=== PATIENT | female | born 1995 | race Caucasian/White ===

== ENCOUNTER 2019-08-19 20:17 | Emergency (ER) | payer OTHER ==
[~2019-08-19] VITALS: Ht 162.6 cm; Wt 68.0 kg
[2019-08-19] MEDS ORDERED: ZYRTEC10 M5 PO (20:30)
[2019-08-19] MEDS ORDERED: SUPER THERAVIT1 EACH PO (20:30)
[2019-08-19 20:47] LABS: URINE BILIRUBIN NEGATIVE (Negative); URINE BLOOD NEGATIVE (Negative); URINE CLARITY CLEAR; URINE COLOR STRAW; URINE GLUCOSE-RANDOM NEGATIVE (Negative); URINE KETONES NEGATIVE (Negative); URINE LEUKOCYTES NEGATIVE (Negative); URINE NITRITE NEGATIVE (Negative); URINE PROTEIN NEGATIVE (Negative); URINE SPECIFIC GRAVITY <= 1.005 (1.005-1.030); URINE UROBILINOGEN 0.2 E.U./dl (0.2-1.0)
[2019-08-19 20:48] LABS: ABSOLUTE EOSINOPHILS 0.1 thou/uL (0.0-0.7); ABSOLUTE LYMPHOCYTES 1.5 thou/uL (0.8-5.3); ABSOLUTE MONOCYTES 0.5 thou/uL (0.0-1.2); ABSOLUTE NEUTROPHILS 7.5 thou/uL (1.6-8.1); BASOPHILS 0.5 %; HEMOGLOBIN 15.2 gm/dL (12.0-15.0); LYMPHOCYTES 15.2 %; MCH 31.9 pg (26.0-34.0); MCHC 34.6 g/dL (28.0-37.0); MCV 92.2 fL (80.0-100.0); MONOCYTES 5.7 %; MPV 8.3 fl. (7.2-11.1); NUCLEATED RBCS 0 /100WBC; PLATELET COUNT* 244 thou/uL (150-400); POLYS 77.6 %; RBC 4.77 mil/uL (4.20-5.00); RDW-CV 12.3 % (10.5-14.5); WBC 9.6 thou/uL (4.0-11.0)
[2019-08-19 20:52] LABS: POTASSIUM 3.8 mmol/L (3.5-5.1)
[2019-08-19 20:53] LABS: APTT 26.3 Seconds (25.0-31.3); INR 1.2
[2019-08-19 20:56] LABS: ALBUMIN 4.1 g/dL (3.4-5.0); TOTAL BILIRUBIN 0.4 mg/dL (<0.1-1.0); TOTAL PROTEIN 7.7 g/dL (6.4-8.2)
[2019-08-19] MEDS ORDERED: BENTYL 10 MG CA10 MG PO (22:07)
[2019-08-19 22:23] VITALS: BP 112/80
== END 2019-08-19 22:24 | disposition home or self-care (01) ==
LOC: M.ERS 20:17
PROVIDERS: Physician Assistant
DX: K62.5 Hemorrhage of anus and rectum (principal); R10.30 Lower abdominal pain, unspecified; Z88.0 Allergy status to penicillin; Z88.5 Allergy status to narcotic agent; Z88.8 Allergy status to other drugs, medicaments and biological substances

== ENCOUNTER 2019-11-06 16:52 | Emergency (ER) | payer OTHER ==
[~2019-11-06] VITALS: Ht 162.6 cm; Wt 68.0 kg
[~2019-11-06 16:52] MED LIST: BENTYL 10 MG CA10 MG PO; SUPER THERAVIT1 EACH PO; ZYRTEC10 M5 PO
[2019-11-06] MEDS ORDERED: GAS-X125 M1 PO (17:07)
[2019-11-06] MEDS ORDERED: ANTACID200 MG PO (17:07)
[2019-11-06] MEDS ORDERED: VITAMIN B122500 MCG PO (17:08)
[2019-11-06] MEDS ORDERED: VITAMIN D22000 UNIT PO (17:08)
[2019-11-06] MEDS ORDERED: FLONASE 0.05%50 MCG NARES (17:08)
[2019-11-06] MEDS ORDERED: VITAMIN C500 M3 PO (17:08)
[2019-11-06] MEDS ORDERED: ZOFRAN ODT4 MG PO (17:08)
[2019-11-06 17:22] LABS: URINE BILIRUBIN NEGATIVE (Negative); URINE BLOOD NEGATIVE (Negative); URINE CLARITY CLEAR; URINE COLOR YELLOW; URINE GLUCOSE-RANDOM NEGATIVE (Negative); URINE KETONES NEGATIVE (Negative); URINE LEUKOCYTES-REFLEX NEGATIVE (Negative); URINE NITRITE-REFLEX NEGATIVE (Negative); URINE PROTEIN NEGATIVE (Negative); URINE UROBILINOGEN 0.2 E.U./dl (0.2-1.0)
[2019-11-06 17:39] LABS: ABSOLUTE EOSINOPHILS 0.2 thou/uL (0.0-0.7); ABSOLUTE LYMPHOCYTES 1.7 thou/uL (0.8-5.3); ABSOLUTE MONOCYTES 0.4 thou/uL (0.0-1.2); ABSOLUTE NEUTROPHILS 3.1 thou/uL (1.6-8.1); BASOPHILS 0.8 %; EOSINOPHILS 3.6 %; HEMOGLOBIN 14.4 gm/dL (12.0-15.0); LYMPHOCYTES 31.4 %; MCH 32.2 pg (26.0-34.0); MCHC 35.1 g/dL (28.0-37.0); MCV 91.9 fL (80.0-100.0); MONOCYTES 6.6 %; MPV 8.4 fl. (7.2-11.1); NUCLEATED RBCS 0 /100WBC; PLATELET COUNT* 255 thou/uL (150-400); POLYS 57.6 %; RBC 4.46 mil/uL (4.20-5.00); RDW-CV 12.5 % (10.5-14.5); WBC 5.4 thou/uL (4.0-11.0)
[2019-11-06 17:47] LABS: CALCIUM 8.5 mg/dL (8.5-10.1); CREATININE 0.8 mg/dL (0.6-1.3)
[2019-11-06 17:52] LABS: ALBUMIN 3.8 g/dL (3.4-5.0); TOTAL BILIRUBIN 0.4 mg/dL (<0.1-1.0); TOTAL PROTEIN 7.4 g/dL (6.4-8.2)
[2019-11-06] MEDS ORDERED: REGLAN 10 MG TA10 MG PO (19:07)
[2019-11-06] MEDS ORDERED: BENTYL 20 MG TA20 M1 PO (19:08)
[2019-11-06] MEDS ORDERED: FLAGYL500 M1 PO (19:08)
[2019-11-06] MEDS ORDERED: CITRATE OF MAG296 M1 PO (19:08)
[2019-11-06 19:43] VITALS: BP 118/78
== END 2019-11-06 19:43 | disposition home or self-care (01) ==
LOC: M.ERS 16:52
PROVIDERS: Nurse Practitioner Family
DX: K59.00 Constipation, unspecified (principal); Z88.0 Allergy status to penicillin; Z88.5 Allergy status to narcotic agent; Z88.8 Allergy status to other drugs, medicaments and biological substances; Z90.89 Acquired absence of other organs

== ENCOUNTER 2019-11-14 19:20 | Emergency (ER) | payer OTHER ==
[~2019-11-14] VITALS: Ht 162.6 cm; Wt 69.8 kg
[~2019-11-14 19:20] MED LIST changes: +ANTACID200 MG PO; +BENTYL 20 MG TA20 M1 PO; +CITRATE OF MAG296 M1 PO; +FLAGYL500 M1 PO; +FLONASE 0.05%50 MCG NARES; +GAS-X125 M1 PO; +REGLAN 10 MG TA10 MG PO; +VITAMIN B122500 MCG PO; +VITAMIN C500 M3 PO; +VITAMIN D22000 UNIT PO; +ZOFRAN ODT4 MG PO
[2019-11-14 20:08] LABS: URINE BILIRUBIN NEGATIVE (Negative); URINE BLOOD NEGATIVE (Negative); URINE CLARITY CLEAR; URINE COLOR YELLOW; URINE GLUCOSE-RANDOM NEGATIVE (Negative); URINE KETONES NEGATIVE (Negative); URINE LEUKOCYTES NEGATIVE (Negative); URINE NITRITE NEGATIVE (Negative); URINE PROTEIN NEGATIVE (Negative); URINE SPECIFIC GRAVITY <= 1.005 (1.005-1.030); URINE UROBILINOGEN 0.2 E.U./dl (0.2-1.0)
[2019-11-14 20:18] LABS: AMP/METHAMP Negative (Negative); BARBITURATES Negative (Negative); BENZODIAZEPINES Negative (Negative); COCAINE Negative (Negative); METHADONE Negative (Negative); OPIATES Negative (Negative); PCP Negative (Negative); THC Negative (Negative)
[2019-11-14 20:33] LABS: HEMATOCRIT 42.8 % (37.0-47.0); HEMOGLOBIN 14.8 gm/dL (12.0-15.0); MCHC 34.6 g/dL (28.0-37.0); MCV 92.3 fL (80.0-100.0); MPV 8.9 fl. (7.2-11.1); RBC 4.63 mil/uL (4.20-5.00); RDW-CV 12.6 % (10.5-14.5)
[2019-11-14 20:41] LABS: POTASSIUM 3.8 mmol/L (3.5-5.1)
[2019-11-14 20:46] LABS: ALBUMIN 4.4 g/dL (3.4-5.0); TOTAL BILIRUBIN 0.5 mg/dL (<0.1-1.0); TOTAL PROTEIN 7.9 g/dL (6.4-8.2)
[2019-11-14 21:02] LABS: SALICYLATE < 2.8 mg/dL (2.8-20.0)
[2019-11-14 21:03] LABS: ACETAMINOPHEN < 2 ug/mL (10-30); ALCOHOL < 10 mg/dL (<10)
[2019-11-14] MEDS ORDERED: LORAZEPAM 0.50.5 MG PO (21:55)
[2019-11-15 07:18] VITALS: BP 121/68
== END 2019-11-15 07:20 | disposition still patient (30) ==
LOC: M.ERS 19:20
PROVIDERS: Personal Emergency Response Attendant
DX: F32.9 Major depressive disorder, single episode, unspecified (principal); R45.851 Suicidal ideations; Z88.0 Allergy status to penicillin; Z88.5 Allergy status to narcotic agent; Z90.89 Acquired absence of other organs; Z88.8 Allergy status to other drugs, medicaments and biological substances

== ENCOUNTER 2021-04-09 15:25 | Emergency (ER) | payer OTHER ==
[~2021-04-09] VITALS: Ht 162.6 cm; Wt 79.8 kg
[~2021-04-09 15:25] MED LIST changes: +LORAZEPAM 0.50.5 MG PO
[2021-04-09] MEDS ORDERED: GABAPENTIN100 MG PO (15:36)
[2021-04-09] MEDS ORDERED: EFFEXOR XR75 MG PO (15:36)
[2021-04-09] MEDS ORDERED: PROPRANOLOL 20M20 M1 (15:36)
[2021-04-09] MEDS ORDERED: LEVOTHYROXINE100 MC2 PO (15:36)
[2021-04-09] MEDS ORDERED: ABILIFY10 MG PO (15:36)
[2021-04-09 16:57] LABS: ABSOLUTE BASOPHILS 0.1 thou/uL (0.0-0.2); ABSOLUTE EOSINOPHILS 0.1 thou/uL (0.0-0.7); ABSOLUTE LYMPHOCYTES 1.9 thou/uL (0.8-5.3); ABSOLUTE MONOCYTES 0.5 thou/uL (0.0-1.2); BASOPHILS 0.7 %; EOSINOPHILS 1.9 %; HEMATOCRIT 40.4 % (37.0-47.0); HEMOGLOBIN 13.5 gm/dL (12.0-15.0); LYMPHOCYTES 24.9 %; MCH 31.3 pg (26.0-34.0); MCHC 33.4 g/dL (28.0-37.0); MCV 93.8 fL (80.0-100.0); MONOCYTES 6.8 %; MPV 8.1 fl. (7.2-11.1); NUCLEATED RBCS 0 /100WBC; PLATELET COUNT* 295 thou/uL (150-400); POLYS 65.7 %; RBC 4.31 mil/uL (4.20-5.00); RDW-CV 12.8 % (10.5-14.5); WBC 7.6 thou/uL (4.0-11.0)
[2021-04-09 17:04] LABS: CREATININE 0.8 mg/dL (0.6-1.3); POTASSIUM 3.7 mmol/L (3.5-5.1)
[2021-04-09 17:09] LABS: ALBUMIN 3.9 g/dL (3.4-5.0); TOTAL BILIRUBIN 0.3 mg/dL (<0.1-1.0); TOTAL PROTEIN 7.5 g/dL (6.4-8.2)
[2021-04-09 17:21] LABS: URINE BILIRUBIN NEGATIVE (Negative); URINE BLOOD NEGATIVE (Negative); URINE CLARITY CLEAR; URINE COLOR YELLOW; URINE GLUCOSE-RANDOM NEGATIVE (Negative); URINE KETONES NEGATIVE (Negative); URINE LEUKOCYTES-REFLEX TRACE (Negative); URINE NITRITE-REFLEX NEGATIVE (Negative); URINE PROTEIN NEGATIVE (Negative); URINE SPECIFIC GRAVITY 1.015 (1.005-1.030); URINE UROBILINOGEN 0.2 E.U./dl (0.2-1.0)
[2021-04-09 17:26] LABS: CASTS None Seen /LPF (None Seen); CRYSTALS None Seen /LPF (None Seen); MUCUS None Seen strn/LPF (None Seen); SQUAMOUS >10 Many /LPF (0-3); URINE RBC None Seen /HPF (0-2); URINE WBC-REFLEX 0-5 Rare /HPF (0-5)
[2021-04-09 17:27] LABS: BACTERIA-REFLEX 1-9 Few /HPF (None Seen)
[2021-04-09] MEDS ORDERED: DICYCLOMINE HCL20 MG PO (18:35)
[2021-04-09] MEDS ORDERED: ZOFRAN ODT4 MG PO (18:35)
[2021-04-09] MEDS ORDERED: FLAGYL500 M1 PO (18:35)
[2021-04-09 18:44] VITALS: BP 114/76
== END 2021-04-09 18:45 | disposition home or self-care (01) ==
LOC: M.ERS 15:25
PROVIDERS: Nurse Practitioner Family
DX: I88.0 Nonspecific mesenteric lymphadenitis (principal); K62.5 Hemorrhage of anus and rectum; Z90.89 Acquired absence of other organs; Z98.890 Other specified postprocedural states; Z79.899 Other long term (current) drug therapy; Z88.0 Allergy status to penicillin; Z88.6 Allergy status to analgesic agent; Z88.8 Allergy status to other drugs, medicaments and biological substances